=== PATIENT | male | born 1965 | race Caucasian/White ===

== ENCOUNTER → 2016-08-12 | Outpatient (CLI) | payer BC ==
--- NOTE | 2016-08-12 10:45 | DI ---
CT CHEST W/O CONTRAST,08/12/2016 9:38 AM: Clinical History: Incidental lung nodules. Previous Exam: CT abdomen pelvis performed February 21, 2016 and March 06, 2016 as well as a nuclea r medicine cardiac stress test performed September 15, 2013 Findings: Multiple helically acquired CT images are obtained through the chest without contrast, and demonstrat e a stable 8 mm nodule within the left major fissure. There is also a small 3 mm nodule within the ma jean fissure as well. These were seen on the prior examination dating back to February 21, 2016. This wa s probably seen on the CT associated with the nuclear medicine stress test performed back in 2013 how ever, the slice thickness of the exam performed in 2013 limits definite identification of these nodul es. There is no lymphadenopathy. There is no pleural effusion. There are some old rib fractures. Impression: Stable nodules within the left major fissure unchanged from all visible prior exams. This was seen as far back as February 202015. Continued followup should be performed using [employer] guide lines based on the February 21, 2016 date of initial discovery.
== END ==
LOC: CT 09:36
PROVIDERS: ATTEND Family Medicine
DX: R91.1 Solitary pulmonary nodule (principal)
CPT/HCPCS: 71250